=== PATIENT | female | born 1940 | race Caucasian/White ===

== ENCOUNTER 2019-01-01 18:27 | Emergency (ER) | payer MEDICARE, OTHER ==
[~2019-01-01] VITALS: Ht 157.5 cm; Wt 48.5 kg
--- NOTE | 2019-01-01 18:30 | NUR ---
BIBPA [id number] M KIERA JULIAN FOR R EYE REDNESS AND SWELLING X 2DAYS. PATIENT A/OX1-2, BREATHING EVEN AND UNLABORED, NO SOB NOTED. NEEDS ATTENDED, ATTACHED TO THE MONITOR.
--- NOTE | 2019-01-01 18:47 | NUR ---
DR. HOUSTON AT BEDSIDE FOR EVAL
--- NOTE | 2019-01-01 19:00 | NUR ---
UA SAMPLE SENT TO LAB
[2019-01-01 19:03] LABS: BASOPHILS % (AUTO) 0.5 % (0.0-2.0); EOSINOPHILS % (AUTO) 0.2 % (0.0-6.0); HEMATOCRIT 39 % (33-45); HEMOGLOBIN 13.1 g/dL (11.5-14.8); LYMPHOCYTES # (AUTO) 0.5 /CMM (0.8-4.8); LYMPHOCYTES % (AUTO) 17.3 % (20.0-44.0); MEAN CORPUSCULAR HGB CONC 34 g/dl (31.0-36.0); MEAN CORPUSCULAR VOLUME 87 fL (82-100); MONOCYTES # (AUTO) 0.5 /CMM (0.1-1.30); PLATELET COUNT (AUTO) 203 /CMM (150-450); RED BLOOD CELL COUNT(AUTO) 4.47 MIL/uL (4.0-5.2); WHITE BLOOD COUNT (AUTO) 3.1 K/uL (4.3-11.0)
[2019-01-01] MEDS ORDERED: CITA10TA9 PO (19:12)
[2019-01-01] MEDS ORDERED: OMEP20CA11 PO (19:12)
[2019-01-01] MEDS ORDERED: TRAM50TA2 PO (19:12)
[2019-01-01] MEDS ORDERED: ARIP10TA17 PO (19:12)
[2019-01-01] MEDS ORDERED: CLON0.1T PO (19:12)
[2019-01-01] MEDS ORDERED: ACET-2605 PO (19:12)
[2019-01-01 19:17] LABS: APPEARANCE,URINE Cloudy (CLEAR); BILIRUBIN,URINE Negative (NEGATIVE); BLOOD, URINE Small Ery/uL (NEGATIVE); COLOR,URINE Other (YELLOW); KETONES,URINE Negative (NEGATIVE); LEUKOCYTE ESTERASE ,URINE Large (NEGATIVE); NITRITE, URINE Positive (NEGATIVE); PH,URINE 7.5 (5.0-8.0); PROTEIN,URINE Negative (NEGATIVE); UGLUCOSE Negative (NEGATIVE); UROBILINOGEN,URINE 0.2 EU/dL (0.2)
--- NOTE | 2019-01-01 19:20 | NUR ---
TAKEN TO CT.
[2019-01-01 19:24] LABS: ACETAMINOPHEN < 2 ug/ml (10-30); ALANINE AMINOTRANSFERASE 31 U/L (12-78); ALBUMIN 3.4 g/dL (3.4-5.0); ALCOHOL, BLOOD < 3 mg/dL (0-0); ALKALINE PHOSPHATASE 116 U/L (46-116); ASPARTATE AMINOTRANSFERASE 30 U/L (15-37); BILIRUBIN,DIRECT 0.1 mg/dL (0.0-0.2); BILIRUBIN,TOTAL 0.3 mg/dL (0.2-1.0); CALCIUM, SERUM 8.9 mg/dL (8.5-10.1); CARBON DIOXIDE 31 mmol/L (21-32); CHLORIDE 94 mmol/L (98-107); CREATININE 0.7 mg/dL (0.6-1.3); GLUCOSE 94 mg/dL (74-106); POTASSIUM 4.7 mmol/L (3.5-5.1); SODIUM SERUM 129 mmol/L (136-145); UREA NITROGEN, BLOOD 14 mg/dL (7-18)
--- NOTE | 2019-01-01 19:29 | NUR ---
ENDORSED TO ED FOR CHRISTOPHER
[2019-01-01 19:34] LABS: BACTERIA,URINE 3+ /HPF (None Seen); SQUAMOUS EPITHELIAL CELL,UR Few /HPF (None Seen); WBC,URINE 21-50 /HPF (0-3)
--- NOTE | 2019-01-01 19:34 | NUR ---
CALLED NURSING SUP REQUESTED GPS BED
[2019-01-01] MEDS ORDERED: CIPROFLOXACIN HCL 500 MG TABLET ONE (19:44)
[2019-01-01] MEDS ORDERED: CIPROFLOXACIN HCL 250 MG TABLET PO ONE (20:00)
--- NOTE | 2019-01-01 20:10 | NUR ---
KARINA POTTS INDEPENDENT CROP CONSULTANT AT BEDSIDE TO EDDI DA SILVA.
--- NOTE | 2019-01-01 20:15 | NUR ---
ADILENE VANESSA [id number] TRIP#[id number]
[2019-01-01 20:52] LABS: BAND % (MANUAL) 1 % (0.0-5.0); LYMPHOCYTES % (MANUAL) 16 % (16-48); MONOCYTES % (MANUAL) 5 % (0-11.0); NEUTROPHILS % (MANUAL) 78 (42-76)
--- NOTE | 2019-01-01 21:10 | NUR ---
PT ASLEEP, NO ACUTE DISTRESS NOTED, RESP EVEN AND UNLABORED. CALL LIGHT WIHTIN REACH. WILL CONTINUE TO MONITOR PT CLOSELY.
--- NOTE | 2019-01-01 22:18 | NUR ---
TRANSPORT AT BEDSIDE REPORT GIVEN TO EMT.
[2019-01-01 22:22] VITALS: BP 140/73
== END 2019-01-01 22:32 | disposition home or self-care (01) ==
LOC: ER 18:35
DX: S05.11XA Contusion of eyeball and orbital tissues, right eye, initial encounter (principal); R51 Headache; I10 Essential (primary) hypertension; J44.9 Chronic obstructive pulmonary disease, unspecified; F03.90 Unspecified dementia, unspecified severity, without behavioral disturbance, psychotic disturbance, mood disturbance, and anxiety; Z85.819 Personal history of malignant neoplasm of unspecified site of lip, oral cavity, and pharynx; W22.8XXA Striking against or struck by other objects, initial encounter; Y93.89 Activity, other specified; Y92.89 Other specified places as the place of occurrence of the external cause; Y99.8 Other external cause status
CPT/HCPCS: 36415; 70450; 70480; 80048; 80076; 80307; 81001; 85025; 87077; 87081; 87086; 87186; 93005; 99284; G0480; 80305; 81000-TC

== ENCOUNTER 2019-03-21 12:49 | Emergency (ER) | payer MEDICARE, OTHER ==
[~2019-03-21] VITALS: Ht 165.1 cm; Wt 42.2 kg
[~2019-03-21 12:49] MED LIST: ACET-2605 PO; ARIP10TA17 PO; CITA10TA9 PO; CLON0.1T PO; OMEP20CA11 PO; TRAM50TA2 PO
[2019-03-21 13:11] VITALS: BP 114/71
--- NOTE | 2019-03-21 13:11 | NUR ---
PT NONA RA 878 from Eric Cunningham "was given wrong medication (gabapentin)" PT IS AAOX2, NOT IN RESPIRATORY DISTRESS, HOOKED TO MONITOR, KEPT RESTED AND COMFORTABLE, WILL CONTINUE TO MONITOR, AWAITING ER MD FOR EVAL.
--- NOTE | 2019-03-21 13:18 | NUR ---
SEEN AND EXAMINED BY .
--- NOTE | 2019-03-21 13:29 | NUR ---
[facility] ETA 0954 [facility] [id number]
--- NOTE | 2019-03-21 15:32 | NUR ---
REPORT GIVEN TO EMT FOR PT TRANSFER TO [facility].
== END 2019-03-21 15:33 ==
LOC: ER 12:54
DX: T50.8X1A Poisoning by diagnostic agents, accidental (unintentional), initial encounter (principal); I10 Essential (primary) hypertension; Z85.818 Personal history of malignant neoplasm of other sites of lip, oral cavity, and pharynx; Z98.890 Other specified postprocedural states; Y92.89 Other specified places as the place of occurrence of the external cause

== ENCOUNTER 2022-09-17 17:02 | Inpatient (IN) | payer MEDICARE, OTHER ==
[~2022-09-17] VITALS: Ht 162.6 cm; Wt 42.2 kg
[~2022-09-17 17:02] MED LIST changes: -ARIP10TA17 PO; +ARIP10TA57 PO; -OMEP20CA11 PO; +OMEP20CA15 PO
[2022-09-17] MEDS ORDERED: IV NS 0.9% 1,000 ML BAG IV ONE (17:30)
[2022-09-17] MEDS ORDERED: ACETAMINOPHEN 650 MG/SUPP.RECT RC ONE ×2 (17:30→17:55)
--- NOTE | 2022-09-17 17:30 | NUR ---
IV LINE IS ESTABLISHED, BLOOD SPECIMEN COLLECTED AND SENT TO THE LAB. THE LINE IS SALINE LOCKED.
--- NOTE | 2022-09-17 17:40 | NUR ---
covid antigen and rapid influenza swabs done and sent to the lab
[2022-09-17 18:23] LABS: ALANINE AMINOTRANSFERASE 10 U/L (12-78); ALBUMIN 3.2 g/dL (3.4-5.0); ALKALINE PHOSPHATASE 70 U/L (46-116); ASPARTATE AMINOTRANSFERASE 24 U/L (15-37); BILIRUBIN,DIRECT 0.1 mg/dL (0.0-0.2); BILIRUBIN,TOTAL 0.3 mg/dL (0.2-1.0); CALCIUM, SERUM 8.8 mg/dL (8.5-10.1); CARBON DIOXIDE 26 mmol/L (21-32); CHLORIDE 99 mmol/L (98-107); CREATININE 0.7 mg/dL (0.6-1.3); GLUCOSE 108 mg/dL (74-106); POTASSIUM 4.2 mmol/L (3.5-5.1); SODIUM SERUM 132 mmol/L (136-145); TOTAL PROTEIN, SERUM 6.8 g/dL (6.4-8.2); UREA NITROGEN, BLOOD 16 mg/dL (7-18)
[2022-09-17 18:28] LABS: BASOPHILS % (AUTO) 0.2 % (0.0-2.0); HEMATOCRIT 40 % (33-45); HEMOGLOBIN 12.7 g/dL (11.5-14.8); LYMPHOCYTES # (AUTO) 0.4 K/uL (0.8-4.8); LYMPHOCYTES % (AUTO) 3.2 % (20.0-44.0); MEAN CORPUSCULAR HGB CONC 32 g/dl (31.0-36.0); MEAN CORPUSCULAR VOLUME 87 fL (82-100); MONOCYTES # (AUTO) 1.1 K/uL (0.1-1.30); MONOCYTES % (AUTO) 8.4 % (2.0-12.0); NEUTROPHILS # (AUTO) 11.4 K/uL (1.8-8.9); NEUTROPHILS % (AUTO) 88.2 % (43.0-81.0); PLATELET COUNT (AUTO) 164 K/uL (150-450); RED BLOOD CELL COUNT(AUTO) 4.59 MIL/uL (4.0-5.2); THYROID STIMULATING HORMONE 6.101 uIU/mL (0.358-3.74); WHITE BLOOD COUNT (AUTO) 12.9 K/uL (4.3-11.0)
--- NOTE | 2022-09-17 18:35 | NUR ---
PT COMING TO ER FOR ALTERED MENTAL STATUS. A/O X0 TOLORATING ROOM AIR VITAL WNL BED LOCKED IN LOWEST POSTION.
[2022-09-17] MEDS ORDERED: CEFTRIAXONE 1 G in IV D5W 50 ML IV ONE (19:00)
[2022-09-17] MEDS ORDERED: CEFTRIAXONE 1GM BAG (ER ONLY) 50 ML IV ONE (19:03)
--- NOTE | 2022-09-17 19:24 | NUR ---
URINE SAMPLE COLLECTED AND SENT TO LAB.
[2022-09-17 20:03] LABS: BILIRUBIN,URINE NEGATIVE (NEGATIVE); COLOR,URINE YELLOW (YELLOW); LEUKOCYTE ESTERASE ,URINE NEGATIVE (NEGATIVE); NITRITE, URINE NEGATIVE (NEGATIVE); PROTEIN,URINE NEGATIVE (NEGATIVE); UGLUCOSE NEGATIVE (NEGATIVE); UROBILINOGEN,URINE 0.2 EU/dL (0.2)
[2022-09-17 20:14] LABS: BACTERIA,URINE None seen /HPF (None Seen); SQUAMOUS EPITHELIAL CELL,UR 0-2 /HPF (None Seen); WBC,URINE 0-2 /HPF (0-3)
[2022-09-17] MEDS ORDERED: ONDANSETRON HCL/PF 4 MG/2 ML VIAL IVP PRN (20:30)
[2022-09-17] MEDS ORDERED: MORPHINE SULFATE INJ 2 MG/ML DISP.SYRIN IV PRN (20:30)
[2022-09-17] MEDS ORDERED: ALBUTEROL FS 2.5 MG/0.5 ML VIAL.NEB NEB PRN (20:30)
[2022-09-17] MEDS ORDERED: hydrALAZINE HCL IV 20 MG VIAL IV PRN (20:30)
--- NOTE | 2022-09-17 21:30 | NUR ---
RN NOTE RECEIVED HAND OFF REPORT FROM ER NURSE MARGI
--- NOTE | 2022-09-17 21:30 | NUR ---
HAND OFF REPORT GIVE TO ISAÍAS POTTS.
[2022-09-17 21:33] LABS: BAND % (MANUAL) 11 % (0.0-5.0); LYMPHOCYTES % (MANUAL) 5 % (16-48); MONOCYTES % (MANUAL) 5 % (0-11.0); NEUTROPHILS % (MANUAL) 79 (42-76)
--- NOTE | 2022-09-17 21:49 | NUR ---
GETTING TRANSFERRED TO FIRST FLOOR UNDER ACLS
[2022-09-17] MEDS ORDERED: CEFEPIME 2 GM in IV D5W 100 ML IV SCH (22:00)
--- NOTE | 2022-09-17 22:00 | NUR ---
ADMISSION NOTES ADMITTED AN 81-YEAR-OLD FEMALE, TRANSPORTED VIA GURNEY WITH 2 ED PERSONNEL, WITH DIAGNOSIS OF PNEUMONIA, AAO X 1, CONFUSED, ON O2 VIA NC AT 2 L, O2 SAT 98%, VITAL SIGNS FOLLOWS: TEMP 98.4, HR 75, RR 18, BP 127/67. ON TELE MONITOR SHOWING SINUS RHYTHM. IV ACCESS ON LFA #20G, INTACT AND PATENT. SKIN ASSESSMENT DONE, SKIN IS INTACT, BUT HAS SOME SACRAL REDNESS. PICTURES PLACED IN THE CHART. SAFETY MEASURES IN PLACE: BED LOCKED AND IN LOWEST POSITION, CALL LIGHT WITHIN REACH, SIDE RAILS UP X3.
[2022-09-17] MEDS ORDERED: CEFEPIME 1 GM VIAL ONE (22:25)
[2022-09-17] MEDS: IV NS 0.9% 1,000 ML IV SCH (22:28)
[2022-09-17] MEDS: HEPARIN SODIUM, PORCINE 5000 UNITS/1 ML VIAL SQ SCH (22:30)
[2022-09-17] MEDS: ARIPIPRAZOLE 5 MG TABLET PO SCH (22:30)
[2022-09-18] VITALS: BP 107/60
[2022-09-18] MEDS ORDERED: IPRATROPIUM/ALBUTEROL INHALER IH SCH
--- NOTE | 2022-09-18 00:36 | NUR ---
RN NOTE OBTAINED CODE STATUS OF THE PATIENT FROM [facility], PATIENT IS FULL CODE.
[2022-09-18] MEDS: IPRATROPIUM NEB FS 0.5 MG/2.5 ML AMPUL.NEB IH SCH ×4 (01:30→20:11)
[2022-09-18] MEDS: ALBUTEROL FS 2.5 MG/0.5 ML VIAL.NEB NEB SCH ×4 (01:30→20:11)
[2022-09-18 04:00] VITALS: BP 115/68
[2022-09-18 06:27] LABS: BASOPHILS % (AUTO) 0.1 % (0.0-2.0); EOSINOPHILS % (AUTO) 0.3 % (0.0-6.0); HEMATOCRIT 37 % (33-45); HEMOGLOBIN 12.3 g/dL (11.5-14.8); LYMPHOCYTES # (AUTO) 1.5 K/uL (0.8-4.8); LYMPHOCYTES % (AUTO) 13.2 % (20.0-44.0); MEAN CORPUSCULAR HGB CONC 33 g/dl (31.0-36.0); MEAN CORPUSCULAR VOLUME 86 fL (82-100); MONOCYTES # (AUTO) 0.9 K/uL (0.1-1.30); NEUTROPHILS # (AUTO) 9.2 K/uL (1.8-8.9); NEUTROPHILS % (AUTO) 78.4 % (43.0-81.0); PLATELET COUNT (AUTO) 139 K/uL (150-450); RED BLOOD CELL COUNT(AUTO) 4.32 MIL/uL (4.0-5.2); WHITE BLOOD COUNT (AUTO) 11.7 K/uL (4.3-11.0)
[2022-09-18 07:05] LABS: ALBUMIN 2.7 g/dL (3.4-5.0); BILIRUBIN,TOTAL 0.4 mg/dL (0.2-1.0); CALCIUM, SERUM 8.3 mg/dL (8.5-10.1); CREATININE 0.7 mg/dL (0.6-1.3); MAGNESIUM 1.9 mg/dL (1.8-2.4); PHOSPHORUS 3.4 mg/dL (2.5-4.9)
--- NOTE | 2022-09-18 07:15 | NUR ---
KATLYN OPEN TELE NOTE AWAKE. ALERT TO NAME. CONFUSED AND DISORIENTED. REORIENTED TO DATE, TIME PLACE AND SITUATION. UNLABORED BREATHING ON 02 4 LITERS NASAL CANNULA. MOIST ORAL MUCOSA. RN SOCIAL SERVICES HR SINUS RHYTHM 99. IV ON LEFT FOREARM 20G WITH NS AT 75 ML/HR. HOB ELEVATED, BED IS LOCKED, IN LOW POSITION, EXIT ALARM ON. CALL LIGHT IN REACH. BILATERAL HALF SIDE RAILS UP X2. Addendum: 09/18/22 at 0852 by TRISH FLORIAN RN CORRECTION OF SINUS RHYTHM AT 0715: RN SOCIAL SERVICES SINUS RHYTHM, SINUS KIRA 69.
--- NOTE | 2022-09-18 07:40 | NUR ---
RN CLOSING NOTES PATIENT ASLEEP, BUT EASY TO AROUSE, AAO X 1, CONFUSED, ON O2 VIA NC AT 4 L, O2 SAT 98%. ON TELE MONITOR SHOWING SINUS RHYTHM. IV ACCESS ON LFA #20G, INTACT AND PATENT RUNNING NS AT 75 ML/HR. ALL DUE MEDS WERE GIVEN AND NEEDS ATTENDED. SAFETY MEASURES IN PLACE: BED LOCKED AND IN LOWEST POSITION, CALL LIGHT WITHIN REACH, SIDE RAILS UP X3. ENDORSED TO AM NURSE FOR CHRISTOPHER.
[2022-09-18 08:00] VITALS: BP 127/69
[2022-09-18] MEDS: PANTOPRAZOLE 40 MG TABLET.DR PO SCH (08:24)
[2022-09-18] MEDS: CEFEPIME 2 GM in IV D5W 100 ML IV SCH ×2 (08:24→20:40)
[2022-09-18] MEDS: CITALOPRAM HYDROBROMIDE 10 MG TABLET PO SCH (08:24)
[2022-09-18] MEDS: HEPARIN SODIUM, PORCINE 5000 UNITS/1 ML VIAL SQ SCH ×2 (08:27→20:41)
[2022-09-18] MEDS: IV NS 0.9% 1,000 ML IV SCH ×2 (11:33→22:55)
[2022-09-18] MEDS: ENSURE ENLIVE 237 ML LIQUID (VANILLA) PO SCH ×2 (11:34→19:09)
[2022-09-18 12:00] VITALS: BP 140/70
[2022-09-18] MEDS ORDERED: ACET-868 PO (12:27)
[2022-09-18] MEDS ORDERED: DIVA-78 PO (12:27)
[2022-09-18] MEDS ORDERED: MULT-447 PO (12:27)
[2022-09-18] MEDS ORDERED: LORA-258 PO (12:27)
[2022-09-18] MEDS ORDERED: ERGO500040 PO (12:27)
[2022-09-18] MEDS ORDERED: DOCU-141 PO (12:27)
[2022-09-18] MEDS ORDERED: MAGN400O6 PO (12:27)
[2022-09-18] MEDS ORDERED: QUET50TA PO (12:27)
[2022-09-18 16:00] VITALS: BP 138/70
--- NOTE | 2022-09-18 19:00 | NUR ---
RN CLOSING TELE NOTE AWAKE. ALERT TO NAME. CONFUSED AND DISORIENTED. REORIENTED TO DATE, TIME PLACE AND SITUATION. UNLABORED BREATHING ON 02 4 LITERS NASAL CANNULA. MOIST ORAL MUCOSA. SALVAGE ENGINEER HR SINUS RHYTHM 91. IV ON LEFT FOREARM 20G WITH NS AT 75 ML/HR. HOB ELEVATED, BED IS LOCKED, IN LOW POSITION, EXIT ALARM ON. CALL LIGHT IN REACH. BILATERAL HALF SIDE RAILS UP X2. KEPT CLEAN AND COMFORTABLE. DECLINES PAIN OR DISCOMFORT. PO FLUIDS TAKEN WELL.
--- NOTE | 2022-09-18 19:30 | NUR ---
TRAINING CONSULTANT OPENING NOTE RECEIVED PATIENT IN BED, WITH EYES CLOSED BUT EASY TO AROUSE AND RESPONDS TO VERBAL AND TACTILE STIMULI. ALERT AND ORIENTED TO SELF WITH CONFUSION. AFEBRILE AND NOT IN ANY FORM OF ACUTE DISTRESS. ON O2 INHALATION VIA NASAL CANNULA AT 4LPM. ON TELE MONITORING [facility] CURRENT READING OF SR. WITH IV ACCESS ON LFA 20G RUNNING WITH NS AT 75ML/HR. SAFETY MEASURES IN PLACE. KEPT BED IN LOCKED AND IN LOW POSITION. SIDE RAILS UP X2. CALL LIGHT WITHIN EASY REACH.
[2022-09-18 20:00] VITALS: BP 140/79
[2022-09-18] MEDS: ARIPIPRAZOLE 5 MG TABLET PO SCH (21:41)
--- NOTE | 2022-09-18 22:58 | NUR ---
GENERATOR OPERATOR STRAIGHT BEVEL GEAR NOTE CALLED DAUGHTER JEANINE TO ASK FOR CONSENT FOR POSSIBLE CT OF THE CHEST WITH CONTRAST TOMORROW BUT SHE SAID THAT SHE WAS NOT AWARE THAT HER MOM WAS IN THE HOSPITAL AND SHE EVEN SPOKE TO HER MOM YESTERDAY BUT NO ONE MENTIONED THAT THE FACILITY SENT HER TO THE HOSPITAL. EXPLAINED THE REASON FOR ADMISSION WHICH THE DAUGHTER UNDERSTOOD BUT WANTS TO SPEAK WITH MD AND DISCUSS PLANS PRIOR TO DECIDING AND SIGNING FOR CONSENT. PER DAUGHTER,. HER PRIMARY PHYSICIAN IS DR. KRUEGER. INFORMED THAT DR. KRUEGER IS ALSO PRACTISING IN THE HOSPITAL BUT CURRENT PCP WHILE ON ADMISSION IS DR. CUTLER. DAUGHTER ALSO STATES THAT SHE WANTS TO CONSULT WITH HER MOTHER'S DOCTORS IN [facility] PRIOR TO AGREEING TO ANY PROCEDURES. CN NOTIFIED. WILL RELAY INFO TO THE INCOMING SHIFT.
[2022-09-19] VITALS: BP 148/82
[2022-09-19] MEDS: IPRATROPIUM NEB FS 0.5 MG/2.5 ML AMPUL.NEB IH SCH ×4 (01:30→20:40)
[2022-09-19] MEDS: ALBUTEROL FS 2.5 MG/0.5 ML VIAL.NEB NEB SCH ×4 (01:30→20:40)
[2022-09-19 04:00] VITALS: BP 145/80
--- NOTE | 2022-09-19 06:30 | NUR ---
ROUTE CDL DRIVER CLOSING NOTE PATIENT IN BED, ASLEEP BUT EASY TO AROUSE AND RESPONDS TO VERBAL AND TACTILE STIMULI. ALERT AND ORIENTED TO SELF WITH CONFUSION. AFEBRILE AND NOT IN ANY FORM OF ACUTE DISTRESS. ON O2 INHALATION VIA NASAL CANNULA AT 4LPM. ON TELE MONITORING WITH CURRENT READING OF SR 76. WITH IV ACCESS ON LFA 20G RUNNING WITH NS AT 75ML/HR. MEDICATED ORDERED. CONTINUOUS ON IV ATB, MONITORED FOR ANY ADVERSE REACTION. SAFETY MEASURES IN PLACE. KEPT BED IN LOCKED AND IN LOW POSITION. SIDE RAILS UP X2. CALL LIGHT WITHIN EASY REACH. ALL NURSING NEEDS ATTENDED. ENDORSED TO INCOMING SHIFT FOR CONTINUITY OF CARE.
[2022-09-19 06:44] LABS: BASOPHILS % (AUTO) 0.1 % (0.0-2.0); EOSINOPHILS % (AUTO) 0.2 % (0.0-6.0); HEMATOCRIT 33 % (33-45); HEMOGLOBIN 10.7 g/dL (11.5-14.8); LYMPHOCYTES # (AUTO) 1.1 K/uL (0.8-4.8); LYMPHOCYTES % (AUTO) 14.2 % (20.0-44.0); MEAN CORPUSCULAR HGB CONC 33 g/dl (31.0-36.0); MEAN CORPUSCULAR VOLUME 86 fL (82-100); MONOCYTES # (AUTO) 0.8 K/uL (0.1-1.30); MONOCYTES % (AUTO) 9.9 % (2.0-12.0); NEUTROPHILS % (AUTO) 75.6 % (43.0-81.0); PLATELET COUNT (AUTO) 121 K/uL (150-450); RED BLOOD CELL COUNT(AUTO) 3.77 MIL/uL (4.0-5.2)
[2022-09-19 07:11] LABS: CALCIUM, SERUM 8.3 mg/dL (8.5-10.1); CARBON DIOXIDE 29 mmol/L (21-32); CHLORIDE 103 mmol/L (98-107); CREATININE 0.5 mg/dL (0.6-1.3); GLUCOSE 85 mg/dL (74-106); PHOSPHORUS 2.9 mg/dL (2.5-4.9); POTASSIUM 3.5 mmol/L (3.5-5.1); SODIUM SERUM 136 mmol/L (136-145); UREA NITROGEN, BLOOD 9 mg/dL (7-18)
[2022-09-19 07:41] LABS: MAGNESIUM 1.7 mg/dL (1.8-2.4)
[2022-09-19 08:00] VITALS: BP 136/70
[2022-09-19] MEDS: ENSURE ENLIVE 237 ML LIQUID (VANILLA) PO SCH ×2 (08:30→17:00)
[2022-09-19] MEDS: CITALOPRAM HYDROBROMIDE 10 MG TABLET PO SCH (10:14)
[2022-09-19] MEDS: PANTOPRAZOLE 40 MG TABLET.DR PO SCH (10:14)
[2022-09-19] MEDS: LEVOTHYROXINE SODIUM 25 MCG TABLET PO SCH (10:14)
[2022-09-19] MEDS: HEPARIN SODIUM, PORCINE 5000 UNITS/1 ML VIAL SQ SCH ×2 (10:17→21:55)
[2022-09-19] MEDS: CEFEPIME 2 GM in IV D5W 100 ML IV SCH ×2 (10:18→21:53)
[2022-09-19] MEDS: Magnesium 1GM/D5W 100ML PREMIX 100 ML IV SCH ×2 (11:35→13:09)
[2022-09-19 12:00] VITALS: BP 129/56
[2022-09-19] MEDS: IV NS 0.9% 1,000 ML IV SCH (13:09)
[2022-09-19] MEDS ORDERED: IV NS 0.9% 250 ML IV ONE (14:22)
[2022-09-19] MEDS ORDERED: IOHEXOL-300 100 ML VIAL IV ONE (14:22)
[2022-09-19 16:00] VITALS: BP 125/63
--- NOTE | 2022-09-19 19:30 | NUR ---
ORE MIXER OPENING NOTE RECEIVED PT IN BED AWAKE, WATCHING TV AT THIS TIME. A/O X1, ALERTED TO PERSON ONLY. HARD OF HEARING, CONFUSED. ON O2 2L VIA NC WITH NO S/S OF SOB OR DISTRESS. AFEBRILE, DENIES PAIN AT THIS TIME. ON TELE MONITORING WITH CURRENT READING OF SR 84. WITH IV ACCESS ON LFA 20G RUNNING WITH NS AT 75ML/HR. SAFETY MEASURES IN PLACE: BED IN LOCKED AND LOW POSITION, SIDE RAILS UP X3, BED ALARM ON, CALL LIGHT AND TRAY TABLE WITHIN EASY REACH. WILL CONTINUE TO MONITOR AND ASSIST.
[2022-09-19 20:00] VITALS: BP 125/85
[2022-09-19] MEDS: ARIPIPRAZOLE 5 MG TABLET PO SCH (21:53)
[2022-09-20] VITALS: BP 128/80
[2022-09-20] MEDS: IPRATROPIUM NEB FS 0.5 MG/2.5 ML AMPUL.NEB IH SCH ×4 (01:33→19:30)
[2022-09-20] MEDS: ALBUTEROL FS 2.5 MG/0.5 ML VIAL.NEB NEB SCH ×4 (01:34→19:30)
[2022-09-20 04:00] VITALS: BP 149/81
[2022-09-20] MEDS: IV NS 0.9% 1,000 ML IV SCH (05:33)
[2022-09-20 06:19] LABS: BASOPHILS % (AUTO) 0.4 % (0.0-2.0); EOSINOPHILS % (AUTO) 0.2 % (0.0-6.0); HEMATOCRIT 33 % (33-45); HEMOGLOBIN 10.8 g/dL (11.5-14.8); LYMPHOCYTES # (AUTO) 0.6 K/uL (0.8-4.8); LYMPHOCYTES % (AUTO) 11.3 % (20.0-44.0); MEAN CORPUSCULAR HGB CONC 33 g/dl (31.0-36.0); MEAN CORPUSCULAR VOLUME 86 fL (82-100); MONOCYTES # (AUTO) 0.7 K/uL (0.1-1.30); MONOCYTES % (AUTO) 12.8 % (2.0-12.0); NEUTROPHILS # (AUTO) 4.1 K/uL (1.8-8.9); NEUTROPHILS % (AUTO) 75.3 % (43.0-81.0); PLATELET COUNT (AUTO) 117 K/uL (150-450); RED BLOOD CELL COUNT(AUTO) 3.79 MIL/uL (4.0-5.2); WHITE BLOOD COUNT (AUTO) 5.4 K/uL (4.3-11.0)
--- NOTE | 2022-09-20 06:47 | NUR ---
POT RELINER CLOSING NOTES PT IN BED AWAKE, WATCHING TV AT THIS TIME. A/O X1, ALERT TO PERSON ONLY, HARD OF HEARING, WITH MOMENTS OF CONFUSION. STABLE ON O2 2L VIA NC WITH NO S/S OF SOB OR DISTRESS. AFEBRILE, DENIES PAIN AT THIS TIME. ON TELE MONITORING WITH CURRENT READING OF SR 86. WITH IV ACCESS ON LFA 20G RUNNING WITH NS AT 75ML/HR. ALL CARE PROVIDED AND MEDS TOLERATED WELL. SAFETY MEASURES MAINTAINED: BED IN LOCKED AND LOW POSITION, SIDE RAILS UP X3, BED ALARM ON, CALL LIGHT AND TRAY TABLE WITHIN EASY REACH. WILL ENDORSE CHRISTOPHER TO DAY SHIFT NURSE.
[2022-09-20 07:24] LABS: CALCIUM, SERUM 8.4 mg/dL (8.5-10.1); CARBON DIOXIDE 29 mmol/L (21-32); CHLORIDE 100 mmol/L (98-107); CREATININE 0.5 mg/dL (0.6-1.3); GLUCOSE 125 mg/dL (74-106); MAGNESIUM 1.7 mg/dL (1.8-2.4); POTASSIUM 3.4 mmol/L (3.5-5.1); SODIUM SERUM 134 mmol/L (136-145); UREA NITROGEN, BLOOD 9 mg/dL (7-18)
[2022-09-20 08:00] VITALS: BP 140/86
--- NOTE | 2022-09-20 08:08 | NUR ---
STAGE SETTINGS PAINTER NOTE PATIENT IN BED ,ALERT AWAKE WITH CONFUSION ,BED ALARM I PLACE, ON TELE MONITOR SR HR 85 AT THIS TIME, LT FA HL INTACT , ON IVF ORDERED BED IN LOWEST AND LOCKED POSITION,ON 2L NC ,NO SOB NOTED AT THIS TIME, WILL CONT TO MONITOR CLOSELY, CALL LIGHT WITHIN REACH
[2022-09-20] MEDS: CITALOPRAM HYDROBROMIDE 10 MG TABLET PO SCH (08:50)
[2022-09-20] MEDS: PANTOPRAZOLE 40 MG TABLET.DR PO SCH (08:50)
[2022-09-20] MEDS: CEFEPIME 2 GM in IV D5W 100 ML IV SCH ×2 (08:50→21:53)
[2022-09-20] MEDS: LEVOTHYROXINE SODIUM 25 MCG TABLET PO SCH (08:50)
[2022-09-20] MEDS: HEPARIN SODIUM, PORCINE 5000 UNITS/1 ML VIAL SQ SCH ×2 (08:51→21:53)
[2022-09-20] MEDS: ENSURE ENLIVE 237 ML LIQUID (VANILLA) PO SCH ×2 (09:19→17:08)
--- NOTE | 2022-09-20 10:30 | NUR ---
telemetry technician note all needs attended ,not in distress
[2022-09-20 12:00] VITALS: BP 156/78
[2022-09-20] MEDS ORDERED: MAGNESIUM OXIDE 400 MG TABLET PO ONE (12:00)
[2022-09-20] MEDS: ACETYLCYSTEINE 10% SOLN 400 MG/4 ML VIAL NEB SCH ×3 (12:46→23:30)
[2022-09-20] MEDS ORDERED: POTASSIUM CHLORIDE 20 MEQ TAB.PRT.SR PO SCH (13:00)
--- NOTE | 2022-09-20 15:27 | NUR ---
telecommunications manager note on breathing tx as order
[2022-09-20 16:00] VITALS: BP 151/79
--- NOTE | 2022-09-20 18:39 | NUR ---
PUBLIC SPEAKING PROFESSOR NOTE PATIENT IN BED , ON 2L NC NO SOB NOTED AT THIS TIME, ON TELE MONITOR SR HR 85 AT THIS TIME, LT FA HL INTACT AND FLUSHED WELL ,PLACED NEW WITH GOOD BLOOD RETURN ONE , BED IN LOWEST AND LOCKED POSITION , WILL CONT TO MONITOR CLOSELY
--- NOTE | 2022-09-20 19:20 | NUR ---
DRY WALL INSTALLATIONS MECHANIC OPENING NOTE RECEIVED PATIENT FROM AM NURSE; PATIENT IS RESTING IN BED, A/O X1, CONFUSED; STABLE ON 2LPM O2 VIA NASAL CANNULA, TOLERATING WELL AND NO S/S OF DISTRESS NOTED; ON TELE MONITORING CURRENTLY READING SR; WITH IV ACCESS ON LFA G#22 SALINE LOCK; SAFETY MEASURES IMPLEMENTED, BED IN LOW AND LOCKED POSITION, SIDE RAILS UP X 4, CALL LIGHT WITHIN REACH; WILL CONTINUE TO MONITOR THROUGHOUT SHIFT
[2022-09-20 20:00] VITALS: BP 140/89
[2022-09-20] MEDS: ARIPIPRAZOLE 5 MG TABLET PO SCH (21:53)
[2022-09-21] VITALS: BP 133/90
[2022-09-21] MEDS: IPRATROPIUM NEB FS 0.5 MG/2.5 ML AMPUL.NEB IH SCH ×5 (01:30→19:40)
[2022-09-21] MEDS: ALBUTEROL FS 2.5 MG/0.5 ML VIAL.NEB NEB SCH ×5 (01:30→19:39)
[2022-09-21 04:00] VITALS: BP 145/90
[2022-09-21 06:59] LABS: BASOPHILS % (AUTO) 0.4 % (0.0-2.0); EOSINOPHILS % (AUTO) 1.8 % (0.0-6.0); HEMATOCRIT 33 % (33-45); HEMOGLOBIN 10.9 g/dL (11.5-14.8); LYMPHOCYTES # (AUTO) 0.9 K/uL (0.8-4.8); LYMPHOCYTES % (AUTO) 22.5 % (20.0-44.0); MEAN CORPUSCULAR HGB CONC 33 g/dl (31.0-36.0); MEAN CORPUSCULAR VOLUME 86 fL (82-100); MONOCYTES # (AUTO) 0.6 K/uL (0.1-1.30); MONOCYTES % (AUTO) 15.7 % (2.0-12.0); NEUTROPHILS # (AUTO) 2.4 K/uL (1.8-8.9); NEUTROPHILS % (AUTO) 59.6 % (43.0-81.0); PLATELET COUNT (AUTO) 123 K/uL (150-450); RED BLOOD CELL COUNT(AUTO) 3.81 MIL/uL (4.0-5.2)
[2022-09-21 07:26] LABS: CALCIUM, SERUM 8.6 mg/dL (8.5-10.1); CARBON DIOXIDE 33 mmol/L (21-32); CHLORIDE 99 mmol/L (98-107); CREATININE 0.5 mg/dL (0.6-1.3); GLUCOSE 75 mg/dL (74-106); MAGNESIUM 1.6 mg/dL (1.8-2.4); POTASSIUM 3.9 mmol/L (3.5-5.1); SODIUM SERUM 135 mmol/L (136-145); UREA NITROGEN, BLOOD 6 mg/dL (7-18)
--- NOTE | 2022-09-21 07:28 | NUR ---
INVENTORY ASSOCIATE CLOSING NOTE PATIENT IS RESTING IN BED, A/O X1, CONFUSED; STABLE ON 2LPM O2 VIA NASAL CANNULA, TOLERATING WELL AND NO S/S OF DISTRESS NOTED; ON TELE MONITORING CURRENTLY READING SR; WITH IV ACCESS ON LFA G#22 SALINE LOCK INTACT AND PATENT, FLUSHING WELL; ADMINISTERED MEDICATIONS PRESCRIBED; PATIENT'S NEEDS ATTENDED; MONITORED PATIENT ACCORDINGLY; SAFETY MEASURES IMPLEMENTED, BED IN LOW AND LOCKED POSITION, SIDE RAILS UP X 4, CALL LIGHT WITHIN REACH; NO COMPLAINTS OF PAIN AND DISCOMFORT AT THIS TIME; WILL ENDORSE TO AM NURSE FOR CHRISTOPHER.
[2022-09-21] MEDS: ACETYLCYSTEINE 10% SOLN 400 MG/4 ML VIAL NEB SCH ×3 (07:35→22:59)
--- NOTE | 2022-09-21 07:40 | NUR ---
KENO ATTENDANT OPENING NOTE RECEIVED PATIENT FROM PM NURSE; PATIENT IS RESTING IN BED, A/O X1, CONFUSED; STABLE ON 2LPM O2 VIA NASAL CANNULA, TOLERATING WELL AND NO S/S OF DISTRESS NOTED; ON TELE MONITORING CURRENTLY READING SR; WITH IV ACCESS ON LFA G#22 SALINE LOCK; SAFETY MEASURES IMPLEMENTED, BED IN LOW AND LOCKED POSITION, SIDE RAILS UP X 4, CALL LIGHT WITHIN REACH; WILL CONTINUE TO MONITOR THE PATIENT
[2022-09-21 08:00] VITALS: BP 147/111
[2022-09-21] MEDS: CEFEPIME 2 GM in IV D5W 100 ML IV SCH ×2 (09:38→21:04)
[2022-09-21] MEDS: Magnesium 1GM/D5W 100ML PREMIX 100 ML IV SCH ×2 (09:39→10:37)
[2022-09-21] MEDS: CITALOPRAM HYDROBROMIDE 10 MG TABLET PO SCH (09:39)
[2022-09-21] MEDS: ENSURE ENLIVE 237 ML LIQUID (VANILLA) PO SCH ×2 (09:42→16:39)
[2022-09-21] MEDS: HEPARIN SODIUM, PORCINE 5000 UNITS/1 ML VIAL SQ SCH ×2 (09:44→21:05)
[2022-09-21] MEDS: LEVOTHYROXINE SODIUM 25 MCG TABLET PO SCH (09:46)
[2022-09-21] MEDS: PANTOPRAZOLE 40 MG TABLET.DR PO SCH (09:46)
[2022-09-21 12:00] VITALS: BP_SYST 146; BP_SYST 147; BP_DIAS 109; BP_DIAS 111
[2022-09-21 16:00] VITALS: BP 119/73
--- NOTE | 2022-09-21 19:01 | NUR ---
FLOW MANAGER CLOSING NOTE PATIENT IS RESTING IN BED, A/O X1, CONFUSED; STABLE ON 2LPM O2 VIA NASAL CANNULA, TOLERATING WELL AND NO S/S OF DISTRESS NOTED; ON TELE MONITORING CURRENTLY READING SR; WITH IV ACCESS ON LFA G#22 SALINE LOCK INTACT AND PATENT, FLUSHING WELL; ADMINISTERED MEDICATIONS PRESCRIBED; PATIENT'S NEEDS ATTENDED; MONITORED PATIENT ACCORDINGLY; SAFETY MEASURES IMPLEMENTED, BED IN LOW AND LOCKED POSITION, SIDE RAILS UP X 4, CALL LIGHT WITHIN REACH; NO COMPLAINTS OF PAIN AND DISCOMFORT AT THIS TIME; WILL ENDORSE TO PM NURSE FOR CHRISTOPHER.
--- NOTE | 2022-09-21 19:31 | NUR ---
MS RN RN NOTES RECEIVED LYING ON BED,A/O X1,WATCHING TV PROGRAM,BREATHING NON LABORED,DIMINISHED BREATH SOUND ON BOTH LOWER LUNG MEMBRENO, IN RELATION TO PNEUMONIA.O2 IN USED AT 2L/NC TO KEEP O2 SAT ABOVE 905.WITH SALINE LOCK LFA INTACT AND PATENT.DINNER FOOD SERVED AT DINNER NOTED BARELY TOUCHED.FALL RISK,BED ALARM,BED ON LOWEST POSITION AND LOCKED.WILL CONTINUE TO MONITOR STATUS.
--- NOTE | 2022-09-21 19:43 | NUR ---
RT NOTE RECEIVED PT ON 2LPM NC. PT REFUSED BREATHING TX AT THIS TIME, SAID SHES BREATHING FINE. SPO2 97@ 2LPM NC. RN NOTIFIED
[2022-09-21 20:00] VITALS: BP 129/79
[2022-09-21] MEDS: ARIPIPRAZOLE 5 MG TABLET PO SCH (22:12)
[2022-09-22] VITALS: BP 134/81
[2022-09-22] MEDS: IPRATROPIUM NEB FS 0.5 MG/2.5 ML AMPUL.NEB IH SCH ×4 (00:49→21:27)
[2022-09-22] MEDS: ALBUTEROL FS 2.5 MG/0.5 ML VIAL.NEB NEB SCH ×4 (00:49→21:27)
[2022-09-22 04:00] VITALS: BP 133/79
[2022-09-22 06:34] LABS: BASOPHILS % (AUTO) 0.6 % (0.0-2.0); EOSINOPHILS % (AUTO) 1.9 % (0.0-6.0); HEMATOCRIT 34 % (33-45); HEMOGLOBIN 11.2 g/dL (11.5-14.8); LYMPHOCYTES # (AUTO) 1.2 K/uL (0.8-4.8); MEAN CORPUSCULAR HGB CONC 33 g/dl (31.0-36.0); MEAN CORPUSCULAR VOLUME 86 fL (82-100); MONOCYTES # (AUTO) 0.8 K/uL (0.1-1.30); MONOCYTES % (AUTO) 16.9 % (2.0-12.0); NEUTROPHILS # (AUTO) 2.7 K/uL (1.8-8.9); NEUTROPHILS % (AUTO) 55.6 % (43.0-81.0); PLATELET COUNT (AUTO) 131 K/uL (150-450); RED BLOOD CELL COUNT(AUTO) 3.92 MIL/uL (4.0-5.2); WHITE BLOOD COUNT (AUTO) 4.8 K/uL (4.3-11.0)
--- NOTE | 2022-09-22 06:38 | NUR ---
MS RN NOTES NO SIGNIFICANT CHANGE IN STATUS.FAIRLY RESTED AT [facility]. NO SOB NOTED,AFEBRILE.CALL LIGHT IN REACH,NEEDS ATTENDED.ENDORSED TO DAY NURSE IN STABLE CONDITION
[2022-09-22 06:58] LABS: CALCIUM, SERUM 8.8 mg/dL (8.5-10.1); CARBON DIOXIDE 34 mmol/L (21-32); CHLORIDE 96 mmol/L (98-107); CREATININE 0.5 mg/dL (0.6-1.3); GLUCOSE 80 mg/dL (74-106); MAGNESIUM 1.7 mg/dL (1.8-2.4); POTASSIUM 4.1 mmol/L (3.5-5.1); SODIUM SERUM 133 mmol/L (136-145); UREA NITROGEN, BLOOD 11 mg/dL (7-18)
--- NOTE | 2022-09-22 07:30 | NUR ---
RN OPENING NOTE RECEIVED PATIENT IN BED AWAKE, NO SIGNS OF ACUTE DISTRESS NOTED. ON O2 INHALATION @2LPM VIA N/C, NO SOB NOTED, BREATHING EVEN AND UNLABORED. DENIES ANY PAIN OR DISCOMFORT. NOTED WITH IV ACCESS ON LEFT FOREARM #22G, SALINE LOCKED. SAFETY MEASURE IN PLACE. BED IN LOW AND LOCKED POSITION, SIDE RAILS UP X2, CALL LIGHT PLACED WITHIN EASY REACH. WILL CONTINUE TO MONITOR PATIENT.
[2022-09-22] MEDS: ACETYLCYSTEINE 10% SOLN 400 MG/4 ML VIAL NEB SCH ×3 (07:32→23:12)
[2022-09-22 08:00] VITALS: BP 136/89
[2022-09-22] MEDS: LEVOTHYROXINE SODIUM 25 MCG TABLET PO SCH (08:19)
[2022-09-22] MEDS: CITALOPRAM HYDROBROMIDE 10 MG TABLET PO SCH (08:19)
[2022-09-22] MEDS: ENSURE ENLIVE 237 ML LIQUID (VANILLA) PO SCH ×2 (08:19→17:23)
[2022-09-22] MEDS: PANTOPRAZOLE 40 MG TABLET.DR PO SCH (08:19)
[2022-09-22] MEDS: HEPARIN SODIUM, PORCINE 5000 UNITS/1 ML VIAL SQ SCH ×2 (08:20→20:24)
[2022-09-22] MEDS: CEFEPIME 2 GM in IV D5W 100 ML IV SCH ×2 (08:20→20:23)
--- NOTE | 2022-09-22 09:53 | NUR ---
RN NOTE MAGNESIUM LEVEL RESULT 1.[address] CASTRO WITH ORDER TO GIVE 2GM OF MAGNESIUM IV, CARRIED OUT.
[2022-09-22] MEDS: Magnesium 1GM/D5W 100ML PREMIX 100 ML IV SCH ×2 (10:01→11:04)
[2022-09-22 16:00] VITALS: BP 129/67
--- NOTE | 2022-09-22 18:32 | NUR ---
RN CLOSING NOTE PATIENT IN BED AWAKE, VERBALLY RESPONSIVE. NO SIGNS OF ACUTE DISTRESS NOTED. DAUGHTER AT BEDSIDE. REMAINS ON O2 INHALATION @2LPM VIA N/C, NO SOB NOTED, BREATHING EVEN AND UNLABORED. DENIED ANY PAIN OR DISCOMFORT. WITH IV ACCESS ON LEFT FOREARM #22G, SALINE LOCKED. ALL DUE MEDS GIVEN, TAKEN WELL. NOTED WITH POOR MEAL INTAKE. ENCOURAGED FLUIDS. SAFETY MEASURE MAINTAINED. BED IN LOW AND LOCKED POSITION, SIDE RAILS UP X2, CALL LIGHT PLACED WITHIN EASY REACH. WILL ENDORSE TO NEXT SHIFT FOR CONTINUITY OF CARE.
--- NOTE | 2022-09-22 19:23 | NUR ---
MS RN OPENING NOTE RECEIVED PATIENT IN BED, WITH HOB ELEVATED, AWAKE, ALERT AND ORIENTED X 1, WITH DAUGHTER AT BEDSIDE. AFEBRILE AND NOT IN ANY FORM OF ACUTE DISTRESS. ON O2 INHALATION VIA NASAL CANNULA AT 2LPM. WITH IV ACCESS ON LFA 22G-SL. SAFETY MEASURES IN PLACE. KEPT BED IN LOCKED AND IN LOW POSITION. SIDE RAILS UP X2. ADVISED TO USE THE CALL LIGHT WHEN IN NEED OF ASSISTANCE.
[2022-09-22 21:00] VITALS: BP 144/66
[2022-09-22] MEDS: ARIPIPRAZOLE 5 MG TABLET PO SCH (21:01)
[2022-09-23 01:11] LABS: BASOPHILS % (MANUAL) 0 % (0.0-2.0); EOSINOPHILS % (MANUAL) 2 % (0-4); LYMPHOCYTES % (MANUAL) 22 % (16-48); MONOCYTES % (MANUAL) 15 % (0-11.0); NEUTROPHILS % (MANUAL) 61 (42-76)
[2022-09-23] MEDS: ALBUTEROL FS 2.5 MG/0.5 ML VIAL.NEB NEB SCH ×4 (02:17→19:49)
[2022-09-23] MEDS: IPRATROPIUM NEB FS 0.5 MG/2.5 ML AMPUL.NEB IH SCH ×4 (02:17→19:49)
[2022-09-23 05:00] VITALS: BP 148/78
--- NOTE | 2022-09-23 06:30 | NUR ---
PATIENT IN BED, WITH HOB ELEVATED, ASLEEP BUT EASY TO AROUSE AND RESPONDS TO VERBAL AND TACTILE STIMULI. AFEBRILE AND NOT IN ANY FORM OF ACUTE DISTRESS. ON O2 INHALATION VIA NASAL CANNULA AT 2LPM. WITH IV ACCESS ON LFA 22G-SL. MEDICATED ORDERED. CONTINUOUS ON IV ATB FOR PNA, MONITORED FOR ANY ADVERSE REACTION. SAFETY MEASURES IN PLACE. KEPT BED IN LOCKED AND IN LOW POSITION. SIDE RAILS UP X2. ADVISED TO USE THE CALL LIGHT WHEN IN NEED OF ASSISTANCE. ALL NURSING NEEDS ATTENDED. ENDORSED TO INCOMING SHIFT FOR CONTINUITY OF CARE.
--- NOTE | 2022-09-23 07:10 | NUR ---
CARBON SEQUESTRATION PLANT ENGINEER OPENING NOTES Received pt awake in bed AOx1 with episodes of confusion. Pt is on 2L NC and tolerating it well. IV accees on LFA 22G SL patent and intact. HOB elevated to pts comfort. Siderails up at all times x2. Call light within reach. Will continue to monitor.
[2022-09-23] MEDS: ACETYLCYSTEINE 10% SOLN 400 MG/4 ML VIAL NEB SCH ×2 (07:53→15:39)
[2022-09-23 08:00] VITALS: BP 132/73
[2022-09-23] MEDS: PANTOPRAZOLE 40 MG TABLET.DR PO SCH (08:04)
[2022-09-23] MEDS: LEVOTHYROXINE SODIUM 25 MCG TABLET PO SCH (08:04)
[2022-09-23] MEDS: CITALOPRAM HYDROBROMIDE 10 MG TABLET PO SCH (08:04)
[2022-09-23] MEDS: HEPARIN SODIUM, PORCINE 5000 UNITS/1 ML VIAL SQ SCH ×2 (08:06→21:09)
[2022-09-23] MEDS: CEFEPIME 2 GM in IV D5W 100 ML IV SCH ×2 (08:10→21:00)
[2022-09-23] MEDS: ENSURE ENLIVE 237 ML LIQUID (VANILLA) PO SCH ×2 (08:44→17:17)
[2022-09-23 16:00] VITALS: BP 134/74
--- NOTE | 2022-09-23 18:29 | NUR ---
WIRE DROPPER CLOSING NOTES All due meds and tx given as ordered. Pt tolerated everything well. All needs attended to. Pt is on 2L NC and tolerating it well with 02 saturation at 97%. IV access on LFA 22G patent and intact. Call light within reach. Will endorse to oncoming nurse.
--- NOTE | 2022-09-23 19:40 | NUR ---
MS RN OPENING NOTE RECEIVED PATIENT IN BED; AWAKE, ALERT AND ORIENTED X 1. WITH EPISODES OF CONFUSION; HARD OF HEARING. ON O2 INHALATION @ 2 LPM VIA NASAL CANNULA; TOLERATING WELL SATURATING @ 97%. AFEBRILE. NOT IN ANY FORM OF RESPIRATORY OR CARDIAC DISTRESS. NO C/O ANY PAIN OR DISCOMFORT. WITH IV ACCESS ON LEFT FOREARM 22g: PATENT, INTACT AND SALINE LOCKED. SAFETY PRECAUTIONS IMPLEMENTED: CALL LIGHT AND TABLE WITHIN REACH, SIDE RAILS UP X 3, BED IN LOWEST LOCKED POSITION. WILL CONTINUE TO MONITOR THROUGHOUT SHIFT.
[2022-09-23 20:00] VITALS: BP 112/77
--- NOTE | 2022-09-23 21:09 | NUR ---
RN NOTE HGB 11.2/HCT 34. NO S/S OF BLEEDING. HEPARIN 5000 UNITS GIVEN SQ ORDERED. WILL CONTINUE TO MONITOR.
[2022-09-23] MEDS: ARIPIPRAZOLE 5 MG TABLET PO SCH (21:10)
[2022-09-24] MEDS: ACETYLCYSTEINE 10% SOLN 400 MG/4 ML VIAL NEB SCH ×4 (00:19→23:15)
[2022-09-24] MEDS: IPRATROPIUM NEB FS 0.5 MG/2.5 ML AMPUL.NEB IH SCH ×4 (01:03→19:57)
[2022-09-24] MEDS: ALBUTEROL FS 2.5 MG/0.5 ML VIAL.NEB NEB SCH ×4 (01:03→19:57)
[2022-09-24 04:00] VITALS: BP 140/71
--- NOTE | 2022-09-24 06:52 | NUR ---
MS RN CLOSING NOTE PATIENT IN BED; AWAKE, A/O X 1 WITH EPISODES OF CONFUSION, HARD OF HEARING. STILL ON O2 INHALATION @ 2 LPM VIA NASAL CANNULA; WELL TOLERATED. IN NO ACUTE DISTRESS. NO C/O ANY PAIN OR DISCOMFORT MADE AT THIS TIME. WITH IV ACCESS ON LEFT FOREARM 22g: PATENT, INTACT AND SALINE LOCKED. SAFETY PRECAUTIONS MAINTAINED: CALL LIGHT AND TABLE WITHIN REACH, SIDE RAILS UP X 2, BED IN LOWEST LOCKED POSITION. ENDORSED TO MORNING SHIFT FOR CHRISTOPHER.
--- NOTE | 2022-09-24 07:29 | NUR ---
NEURO PSYCH SALES SPECIALIST OPENING NOTES Received pt awake in bed AOx1 with episodes of confusion. Pt is on 2L NC and tolerating it well. IV access on LFA 22G SL patent and intact. HOB elevated to pts comfort. Siderails up at all times x2. Call light within reach. Will continue to monitor.
[2022-09-24 08:00] VITALS: BP 132/75
[2022-09-24] MEDS: CITALOPRAM HYDROBROMIDE 10 MG TABLET PO SCH (08:35)
[2022-09-24] MEDS: PANTOPRAZOLE 40 MG TABLET.DR PO SCH (08:35)
[2022-09-24] MEDS: LEVOTHYROXINE SODIUM 25 MCG TABLET PO SCH (08:35)
[2022-09-24] MEDS: HEPARIN SODIUM, PORCINE 5000 UNITS/1 ML VIAL SQ SCH ×3 (08:39→22:07)
[2022-09-24] MEDS: CEFEPIME 2 GM in IV D5W 100 ML IV SCH ×2 (08:44→21:53)
[2022-09-24] MEDS: ENSURE ENLIVE 237 ML LIQUID (VANILLA) PO SCH ×4 (09:37→21:56)
[2022-09-24 16:00] VITALS: BP 111/71
--- NOTE | 2022-09-24 17:55 | NUR ---
RECEIVED PATIENT ON 2LNC SATURATIONS AT 99%. HHN TXS ELIAS WELL WITH NO ADVERSE REACTION NOTED. NO SOB NOTED.
[2022-09-24] MEDS: DOCUSATE SODIUM 100 MG CAPSULE PO SCH (18:09)
[2022-09-24] MEDS: DIVALPROEX SODIUM 500 MG TABLET.DR PO SCH (18:09)
--- NOTE | 2022-09-24 18:31 | NUR ---
MARGIN TRIMMER CLOSING NOTES All due meds and tx given as ordered. Pt tolerated everything well. All needs attended to. Pt is on 2L NC and tolerating it well with 02 saturation at 99%. IV access on LFA 22G patent and intact. Call light within reach. Will endorse to oncoming nurse.
--- NOTE | 2022-09-24 19:45 | NUR ---
RN Opening Notes Received pt in bed, awake, watching TV. AOx2, able to make needs known. On NC 2LPM and tolerating well. No SOB noted. No s/sx of respiratory distress noted. IV access in LFA #22G. IV is intact, patent, and flushing well. Safety precautions in place: bed in lowest, locked position, siderails upX2, and brakes on. Table and call light within reach. All needs met at this time.
[2022-09-24] MEDS: QUETIAPINE FUMARATE 25 MG TABLET PO SCH (21:53)
[2022-09-25] MEDS: ALBUTEROL FS 2.5 MG/0.5 ML VIAL.NEB NEB SCH ×4 (01:16→19:57)
[2022-09-25] MEDS: IPRATROPIUM NEB FS 0.5 MG/2.5 ML AMPUL.NEB IH SCH ×4 (01:16→19:57)
[2022-09-25 04:00] VITALS: BP 114/61
--- NOTE | 2022-09-25 06:45 | NUR ---
RN Closing Notes Pt in bed, asleep, awakens to verbal stimuli. AOx2, able to make needs known. On NC 2LPM and tolerating well. No SOB noted. No s/sx of respiratory distress noted. IV access in LFA #22G. IV is intact, patent, and flushing well. All orders carried out. All needs met. Pt kept clean and dry. Safety precautions in place: bed in lowest, locked position, siderails upX2, and brakes on. Table and call light within reach. Will endorse to oncoming shift for CHRISTOPHER.
[2022-09-25 07:00] LABS: CALCIUM, SERUM 9.1 mg/dL (8.5-10.1); CREATININE 0.7 mg/dL (0.6-1.3); PHOSPHORUS 3.8 mg/dL (2.5-4.9); POTASSIUM 4.6 mmol/L (3.5-5.1)
--- NOTE | 2022-09-25 07:20 | NUR ---
TURNTABLE WORKER OPENING NOTES Received pt awake in bed AOx2 with episodes of confusion. Pt is on 2L NC and tolerating it well. IV access on LFA 22G SL patent and intact. HOB elevated to pts comfort. Siderails up at all times x2. Call light within reach. Will continue to monitor.
[2022-09-25] MEDS: ACETYLCYSTEINE 10% SOLN 400 MG/4 ML VIAL NEB SCH ×3 (07:35→23:44)
[2022-09-25 08:00] VITALS: BP 118/75
[2022-09-25] MEDS: DIVALPROEX SODIUM 500 MG TABLET.DR PO SCH ×2 (08:52→17:01)
[2022-09-25] MEDS: LEVOTHYROXINE SODIUM 25 MCG TABLET PO SCH (08:52)
[2022-09-25] MEDS: PANTOPRAZOLE 40 MG TABLET.DR PO SCH (08:52)
[2022-09-25] MEDS: HEPARIN SODIUM, PORCINE 5000 UNITS/1 ML VIAL SQ SCH ×2 (08:55→21:38)
[2022-09-25] MEDS: CEFEPIME 2 GM in IV D5W 100 ML IV SCH ×2 (08:58→21:37)
[2022-09-25] MEDS: ENSURE ENLIVE 237 ML LIQUID (VANILLA) PO SCH ×4 (09:07→22:05)
[2022-09-25] MEDS ORDERED: LEVO750T46 PO (11:34)
[2022-09-25] MEDS ORDERED: LEVO25TA7 PO (11:34)
--- NOTE | 2022-09-25 13:00 | NUR ---
APPLE PICKING SUPERVISOR NOTES Spoke with daughter Hayley regarding pt discharge and she refused. Dr. Ramirez and case managing made aware.
--- NOTE | 2022-09-25 13:10 | NUR ---
GRIDDLE ATTENDANT NOTES Dr. Ramirez called called back with new orders to d/c discharge and ordered STAT Valproic acid level and then Valproic acid level daily x6 days. Noted and carried out.
[2022-09-25 16:00] VITALS: BP 137/77
[2022-09-25] MEDS: DOCUSATE SODIUM 100 MG CAPSULE PO SCH (17:01)
[2022-09-25] MEDS ORDERED: ERGOCALCIFEROL (VITAMIN D 2) 50,000 UNIT CAPSULE PO SCH (18:00)
--- NOTE | 2022-09-25 18:22 | NUR ---
PRECISION AGRONOMIST CLOSING NOTES All due meds and tx given as ordered. Pt tolerated everything well. All needs attended to. Pt is on 2L NC and tolerating it well with 02 saturation at 98%. IV access on LFA 22G patent and intact. Call light within reach. Will endorse to oncoming nurse.
--- NOTE | 2022-09-25 19:15 | NUR ---
RN OPENING NOTES RECEIVED PATIENT IN BED, AAO X2, CONFUSED. O2 VIA NC AT 2L, O2 SAT 99%. IV ACCESS ON LFA #22G S/L, INTACT AND PATENT. SAFETY MEASURES IN PLACE: BED LOCKED AND IN LOWEST POSITION, CALL LIGHT WITHIN REACH, SIDE RAILS UP X3.
[2022-09-25 20:00] VITALS: BP 132/74
[2022-09-25] MEDS: QUETIAPINE FUMARATE 25 MG TABLET PO SCH (21:37)
[2022-09-26] MEDS: IPRATROPIUM NEB FS 0.5 MG/2.5 ML AMPUL.NEB IH SCH ×3 (01:13→14:42)
[2022-09-26] MEDS: ALBUTEROL FS 2.5 MG/0.5 ML VIAL.NEB NEB SCH ×3 (01:13→14:42)
[2022-09-26 04:00] VITALS: BP 135/70
--- NOTE | 2022-09-26 06:57 | NUR ---
RN CLOSING NOTES PATIENT IN BED, ASLEEP, BUT AROUSABLE, AAO X2, CONFUSED. O2 VIA NC AT 2L, O2 SAT 99%. IV ACCESS ON LFA #22G S/L, INTACT AND PATENT. SAFETY MEASURES IN PLACE: BED LOCKED AND IN LOWEST POSITION, CALL LIGHT WITHIN REACH, SIDE RAILS UP X3. WILL ENDORSE TO ONCOMING NURSE FOR CHRISTOPHER
--- NOTE | 2022-09-26 07:20 | NUR ---
RN OPENING NOTES RECEIVED PATIENT IN BED, AAO X2, CONFUSED. O2 VIA NC AT 2L, O2 SAT 99%. IV ACCESS ON LFA #22G S/L, INTACT AND PATENT. NO S/S SAFETY MEASURES IN PLACE: BED LOCKED AND IN LOWEST POSITION, CALL LIGHT WITHIN REACH, SIDE RAILS UP X3.
[2022-09-26] MEDS: PANTOPRAZOLE 40 MG TABLET.DR PO SCH (07:37)
[2022-09-26] MEDS: LEVOTHYROXINE SODIUM 25 MCG TABLET PO SCH (07:38)
[2022-09-26] MEDS: ACETYLCYSTEINE 10% SOLN 400 MG/4 ML VIAL NEB SCH ×2 (07:40→14:42)
[2022-09-26] MEDS: CEFEPIME 2 GM in IV D5W 100 ML IV SCH (08:05)
[2022-09-26] MEDS: ENSURE ENLIVE 237 ML LIQUID (VANILLA) PO SCH ×2 (08:06→12:44)
[2022-09-26] MEDS: DIVALPROEX SODIUM 500 MG TABLET.DR PO SCH (08:06)
[2022-09-26] MEDS: HEPARIN SODIUM, PORCINE 5000 UNITS/1 ML VIAL SQ SCH (08:08)
[2022-09-26 12:17] VITALS: BP 138/71
--- NOTE | 2022-09-26 15:04 | NUR ---
RN NOTE REPORT GIVEN TO ANGY POTTS AT [facility].
--- NOTE | 2022-09-26 16:36 | NUR ---
DIRECTOR OF REGIONAL SALES NOTE: PT D/C TO [facility]. GAVE REPORT TO ANGY POTTS. PT IS AAOX2 PERIODS OF CONFUSION. ON 1LPM VIA NC O2SAT 98%. V/S STABLE. NO SOB. NO S/S OF PAIN OR DISCOMFORT. PT PICKED BY [facility] BY EMT IN A GURNEY. ALL D/C PAPER AND BELONGING. SIGNED BY 2 RNS. PT CANNOT SIGN. LEFT HOSPITAL IN STABLE CONDITION. NOTIFIED DAUGHTER.
== END 2022-09-26 17:21 | DRG 871 ==
LOC: ER 17:10 → TELE1 21:04 → MEDSG1 09-21 08:37
PROVIDERS: ADMIT Internal Medicine; ATTEND Internal Medicine
DX: A41.9 Sepsis, unspecified organism (principal); E43 Unspecified severe protein-calorie malnutrition; G93.41 Metabolic encephalopathy; J69.0 Pneumonitis due to inhalation of food and vomit; E87.1 Hypo-osmolality and hyponatremia; J90 Pleural effusion, not elsewhere classified; J98.11 Atelectasis; Z68.1 Body mass index [BMI] 19.9 or less, adult; J44.0 Chronic obstructive pulmonary disease with (acute) lower respiratory infection; I10 Essential (primary) hypertension; D69.6 Thrombocytopenia, unspecified; F01.C0 Vascular dementia, severe, without behavioral disturbance, psychotic disturbance, mood disturbance, and anxiety; E88.09 Other disorders of plasma-protein metabolism, not elsewhere classified; I70.0 Atherosclerosis of aorta; E83.51 Hypocalcemia; Z20.822 Contact with and (suspected) exposure to COVID-19; Z85.819 Personal history of malignant neoplasm of unspecified site of lip, oral cavity, and pharynx; Z92.21 Personal history of antineoplastic chemotherapy; Z92.3 Personal history of irradiation
CPT/HCPCS: 36415; 70450-TC; 71045-TC; 71270-TC; 80048-TC; 80053-TC; 80076-TC; 80164-TC; 81001; 83605-TC; 83735-TC; 84100-TC; 84439-TC; 84443-TC; 84481; 84484-TC; 85025-TC; 85730-TC; 87040-TC; 87081-TC; 87086-TC; 94762-TC; 94799-TC; 97530-TC; A4223; C9803; G0378; J0692; J0696; J1644; J3475; J3490; J7030; J7040; J7050; J7060; Q9967